=== PATIENT | female | born 1975 | race Caucasian/White ===

== ENCOUNTER 2018-01-01 01:10 | Emergency (ER) | payer BC ==
[~2018-01-01] VITALS: Ht 170.1 cm; Wt 81.6 kg
[~2018-01-01 01:10] MED LIST: VICO10300 PO
[2018-01-01 02:38] LABS: BILIRUBIN NEGATIVE (NEGATIVE); BLOOD TRACE-INTACT (NEGATIVE); CLARITY SL CLOUDY (CLEAR); COLOR YELLOW (YELLOW); GLUCOSE NEGATIVE (NEGATIVE); KETONE 1+ (NEGATIVE); LEUKO ESTERASE NEGATIVE (NEGATIVE); NITRITE NEGATIVE (NEGATIVE); SPECIFIC GRAVITY >= 1.030 (1.005-1.030); UROBILINOGEN 0.2 E.U./dl (0.2-1.0)
[2018-01-01 02:53] LABS: BACTERIA 2+; EPITHELIAL CELLS 15-20; WBC 0-2 wbc/hpf (0-5)
[2018-01-01] MEDS ORDERED: CIPRO500 MG PO (03:40)
== END 2018-01-01 03:42 | disposition home or self-care (01) ==
LOC: ED 01:10
PROVIDERS: Emergency Medicine
DX: T19.2XXA Foreign body in vulva and vagina, initial encounter (principal); N39.0 Urinary tract infection, site not specified; F17.200 Nicotine dependence, unspecified, uncomplicated; X58.XXXA Exposure to other specified factors, initial encounter; Y93.89 Activity, other specified; Y92.89 Other specified places as the place of occurrence of the external cause; Y99.8 Other external cause status

== ENCOUNTER → 2019-09-21 | Outpatient (CLI) | payer BC ==
[~2019-09-21] MED LIST changes: +CIPRO500 MG PO
== END | disposition home or self-care (01) ==
LOC: COVID19 11:19
DX: Z03.818 Encounter for observation for suspected exposure to other biological agents ruled out (principal); B34.9 Viral infection, unspecified; Z78.9 Other specified health status

== ENCOUNTER 2021-09-22 11:03 | Emergency (ER) | payer BC ==
[~2021-09-22] VITALS: Ht 172.7 cm; Wt 90.7 kg
[2021-09-22 12:11] LABS: BASO # 0.1 10*3/uL (0.0-0.1); BASO % 1.4 % (0.0-1.0); EOS # 0.1 10*3/uL (0.0-0.4); EOS % 1.2 % (1.0-4.0); HEMATOCRIT 41.4 % (37.0-47.0); LYMPH # 1.1 10*3/uL (1.3-4.4); LYMPH % 18.9 % (27.0-41.0); MEAN CELL VOLUME 88.1 fl (81.0-99.0); MEAN CORPUSCULAR HGB 29.1 pg (27.0-31.0); MEAN CORPUSCULAR HGB CONC 33.1 g/dl (33.0-37.0); MEAN PLATELET VOLUME 9.5 fl (9.6-12.3); MONO # 0.6 10*3/uL (0.1-1.0); MONO % 10.3 % (3.0-9.0); NEUT # 3.8 10*3/uL (2.3-7.9); PLATELET COUNT AUTOMATED 238 10*3/uL (130-400); RED CELL DISTRI WIDTH 12.4 % (0-14.5); WHITE BLOOD COUNT 5.7 10*3/uL (4.8-10.8)
[2021-09-22 12:29] LABS: ALKALINE PHOSPHATASE 93 U/L (45-117); BUN 16 mg/dl (7-24); CHLORIDE 107 mmol/L (98-107); POTASSIUM 4.3 mmol/L (3.5-5.1); SGOT/AST 23 IU/L (3-35); SGPT/ALT 22 U/L (12-78); SODIUM 138 mmol/L (136-145); TOTAL PROTEIN 7.6 gm/dL (6.4-8.2)
[2021-09-22] MEDS ORDERED: ZESTRIL,PRINIVIL5 MG PO (12:53)
== END 2021-09-22 12:51 | disposition home or self-care (01) ==
LOC: ED 11:03
PROVIDERS: Student in an Organized Health Care Education/Training Program
DX: I16.0 Hypertensive urgency (principal); Z98.51 Tubal ligation status; Z90.89 Acquired absence of other organs; F17.200 Nicotine dependence, unspecified, uncomplicated

== ENCOUNTER 2022-10-12 00:37 | Emergency (ER) | payer BC ==
[~2022-10-12 00:37] MED LIST changes: +ZESTRIL,PRINIVIL5 MG PO
[2022-10-12] MEDS ORDERED: PROVENTIL HFA6.7 GM PO (01:41)
[2022-10-12] MEDS ORDERED: IBU800 M2 PO (01:41)
== END 2022-10-12 02:45 | disposition home or self-care (01) ==
LOC: ED 00:37
DX: S10.93XA Contusion of unspecified part of neck, initial encounter (principal); R07.81 Pleurodynia; Z98.51 Tubal ligation status; Z98.890 Other specified postprocedural states; Z87.891 Personal history of nicotine dependence; Y08.89XA Assault by other specified means, initial encounter

== ENCOUNTER 2023-03-08 13:41 | Emergency (ER) | payer BC ==
[~2023-03-08] VITALS: Ht 172.7 cm; Wt 88.5 kg
[~2023-03-08 13:41] MED LIST changes: +IBU800 M2 PO; +PROVENTIL HFA6.7 GM PO
[2023-03-08] MEDS ORDERED: PROPRANOLOL HY120 MG PO (13:53)
== END 2023-03-08 16:41 | disposition home or self-care (01) ==
LOC: ED 13:41
DX: B34.9 Viral infection, unspecified (principal); I10 Essential (primary) hypertension; Z98.51 Tubal ligation status; Z98.890 Other specified postprocedural states; Z20.822 Contact with and (suspected) exposure to COVID-19

== ENCOUNTER → 2023-03-10 | Outpatient (CLI) | payer BC ==
[~2023-03-10] MED LIST changes: +DOXYCYCLINE MO100 M1 PO; +LEVOFLOXACIN750 M2 PO; +PROPRANOLOL HY120 MG PO
[2023-03-10 17:49] LABS: BASO % 0.5 % (0.0-1.0); EOS % 0.1 % (1.0-4.0); HEMATOCRIT 41.2 % (37.0-47.0); LYMPH # 0.6 10*3/uL (1.3-4.4); LYMPH % 7.4 % (27.0-41.0); MEAN CELL VOLUME 91.2 fl (81.0-99.0); MEAN CORPUSCULAR HGB 31.6 pg (27.0-31.0); MEAN CORPUSCULAR HGB CONC 34.7 g/dl (33.0-37.0); MEAN PLATELET VOLUME 11.1 fl (9.6-12.3); MONO # 1.1 10*3/uL (0.1-1.0); MONO % 14.1 % (3.0-9.0); NEUT # 6.1 10*3/uL (2.3-7.9); NEUT % 77.5 % (47.0-73.0); PLATELET COUNT AUTOMATED 143 10*3/uL (130-400); RED BLOOD COUNT 4.52 10*6/uL (4.10-5.10); RED CELL DISTRI WIDTH 11.9 % (0-14.5); WHITE BLOOD COUNT 7.9 10*3/uL (4.8-10.8)
[2023-03-10 18:21] LABS: ALKALINE PHOSPHATASE 143 U/L (46-116); BUN 9 mg/dl (9-23); CHLORIDE 101 mmol/L (98-107); POTASSIUM 3.8 mmol/L (3.4-5.1); SGPT/ALT 25 U/L (10-49); TOTAL PROTEIN 7.2 gm/dL (6.0-8.0)
== END | disposition home or self-care (01) ==
LOC: LAB 17:14
PROVIDERS: ATTEND Nurse Practitioner Family
DX: E86.0 Dehydration (principal); R00.0 Tachycardia, unspecified; R05.8 Other specified cough; J18.9 Pneumonia, unspecified organism; R50.9 Fever, unspecified; Z87.09 Personal history of other diseases of the respiratory system

== ENCOUNTER → 2023-03-21 | Outpatient (CLI) | payer BC | END | disposition home or self-care (01) | LOC: LAB 09:37 | PROVIDERS: ATTEND Nurse Practitioner Family | DX: R78.81 Bacteremia (principal); R00.0 Tachycardia, unspecified; R50.9 Fever, unspecified ==

== ENCOUNTER 2023-12-19 22:36 | Emergency (ER) | payer BC ==
[~2023-12-19] VITALS: Ht 170.1 cm; Wt 99.8 kg
[2023-12-20] MEDS ORDERED: TRAMADOL HCL50 MG PO (00:57)
== END 2023-12-20 01:01 | disposition home or self-care (01) ==
LOC: ED 22:36
DX: S22.32XA Fracture of one rib, left side, initial encounter for closed fracture (principal); I10 Essential (primary) hypertension; E87.6 Hypokalemia; E87.1 Hypo-osmolality and hyponatremia; Z98.51 Tubal ligation status; Z98.890 Other specified postprocedural states; W10.8XXA Fall (on) (from) other stairs and steps, initial encounter; Y93.89 Activity, other specified; Y92.89 Other specified places as the place of occurrence of the external cause; Y99.8 Other external cause status

== ENCOUNTER 2024-07-06 13:31 | Emergency (ER) | payer BC ==
[~2024-07-06] VITALS: Ht 170.1 cm; Wt 103.9 kg
[~2024-07-06 13:31] MED LIST changes: +TRAMADOL HCL50 MG PO
[2024-07-06] MEDS ORDERED: methylPREDNISolone sod succ 125 MG VIAL IM ONE (14:30)
[2024-07-06] MEDS ORDERED: MEDROL DOSEPAK4 MG PO (16:14)
[2024-07-06] MEDS ORDERED: AVPAK AZITHROM250 M1 PO (16:14)
== END 2024-07-06 16:34 | disposition home or self-care (01) ==
LOC: ED 13:31
DX: J40 Bronchitis, not specified as acute or chronic (principal); Z98.51 Tubal ligation status; Z98.890 Other specified postprocedural states

== ENCOUNTER 2024-09-19 12:23 | Emergency (ER) | payer BC ==
[~2024-09-19] VITALS: Ht 172.7 cm; Wt 104.3 kg
[~2024-09-19 12:23] MED LIST changes: +AVPAK AZITHROM250 M1 PO; +MEDROL DOSEPAK4 MG PO
[2024-09-19] MEDS ORDERED: ZEPBOUND2.5 MG/0.5 SQ (12:43)
[2024-09-19] MEDS ORDERED: LISINOPRIL20 MG PO (12:43)
[2024-09-19] MEDS ORDERED: Ondansetron Hydrochloride 4 MG TAB SL ONE (13:30)
[2024-09-19] MEDS ORDERED: Ondansetron Hydrochloride 4 MG/2 ML VIAL IV ONE (13:40)
[2024-09-19] MEDS ORDERED: SODIUM CHLORIDE 0.9% 1,000 ML IV ONE (13:40)
[2024-09-19 13:45] LABS: BASO # 0.1 10*3/uL (0.0-0.1); BASO % 1.3 % (0.0-1.0); EOS % 0.7 % (1.0-4.0); HEMATOCRIT 42.2 % (37.0-47.0); MEAN CELL VOLUME 91.5 fl (81.0-99.0); MEAN CORPUSCULAR HGB CONC 33.9 g/dl (33.0-37.0); MONO # 0.9 10*3/uL (0.1-1.0); NEUT # 3.4 10*3/uL (2.3-7.9); NEUT % 62.3 % (47.0-73.0); PLATELET COUNT AUTOMATED 166 10*3/uL (130-400); RED BLOOD COUNT 4.61 10*6/uL (4.10-5.10); RED CELL DISTRI WIDTH 12.4 % (0-14.5); WHITE BLOOD COUNT 5.5 10*3/uL (4.8-10.8)
[2024-09-19 14:05] LABS: ALKALINE PHOSPHATASE 91 U/L (46-116); BUN 15 mg/dl (9-23); CHLORIDE 96 mmol/L (98-107); LIPASE 30 U/L (12-53); POTASSIUM 3.7 mmol/L (3.4-5.1); SGPT/ALT 37 U/L (5-49); TOTAL PROTEIN 7.9 gm/dL (6.0-8.0)
[2024-09-19] MEDS ORDERED: MG-AL HYDROXIDE/SIMETICONE 30 ML UDC PO STA (14:18)
[2024-09-19] MEDS ORDERED: Dicyclomine Hydrochloride 20 MG/10 ML OSYR PO STA (14:18)
[2024-09-19] MEDS ORDERED: Lidocaine Hydrochloride 15 ML UDC PO STA (14:18)
[2024-09-19] MEDS ORDERED: MAGNESIUM OXIDE 400 MG TAB PO ONE (14:55)
[2024-09-19] MEDS ORDERED: PROTONIX40 MG PO (15:44)
[2024-09-19] MEDS ORDERED: CARAFATE1 GM/10 ML PO (15:44)
[2024-09-19 15:46] LABS: BILIRUBIN 3+ (Negative); BLOOD Negative (Negative); CLARITY Cloudy (Clear); COLOR Orange (Yellow); GLUCOSE Negative (Negative); KETONE 3+ (Negative); LEUKO ESTERASE 1+ (Negative); NITRITE Positive (Negative); PH 6.5 (4.5-8.0); SPECIFIC GRAVITY >= 1.030 (1.001-1.030)
[2024-09-19 16:04] LABS: BACTERIA 1+; EPITHELIAL CELLS 16-20; MUCOUS 1+; RBC 0-2 rbc/hpf (0-2)
== END 2024-09-19 15:56 | disposition home or self-care (01) ==
LOC: ED 12:23
PROVIDERS: Internal Medicine
DX: K21.9 Gastro-esophageal reflux disease without esophagitis (principal); R11.2 Nausea with vomiting, unspecified; Z79.899 Other long term (current) drug therapy